=== PATIENT | female | born 1960 | race Caucasian/White ===

== ENCOUNTER 2024-08-13 09:41 | Outpatient (CLI) | payer MEDICARE | END 2024-08-13 09:42 | disposition home or self-care (01) | LOC: CSHMAMMO 09:41 | PROVIDERS: ATTEND Obstetrics & Gynecology | DX: Z12.31 Encounter for screening mammogram for malignant neoplasm of breast (principal); Z91.89 Other specified personal risk factors, not elsewhere classified | CPT/HCPCS: 77063; 77067 ==

== ENCOUNTER 2024-11-12 10:35 | Outpatient (CLI) | payer MEDICARE, OTHER | END 2024-11-12 10:36 | disposition home or self-care (01) | LOC: CSHMAMMO 10:35 | PROVIDERS: ATTEND Internal Medicine | DX: Z13.820 Encounter for screening for osteoporosis (principal); M81.0 Age-related osteoporosis without current pathological fracture; M85.89 Other specified disorders of bone density and structure, multiple sites; Z78.0 Asymptomatic menopausal state | CPT/HCPCS: 77080 ==